=== PATIENT | male | born 1985 | race African-American/Black ===

== ENCOUNTER 2017-03-17 22:56 | Emergency (ER) | payer MEDICAID, OTHER ==
[~2017-03-17] VITALS: Ht 193 cm; Wt 163.3 kg
[2017-03-17] MEDS ORDERED: diphenhdrAMINE HCL 25 MG CAP PO ONE ×2 (22:57→23:15)
[2017-03-18 00:07] VITALS: BP 150/79
== END 2017-03-18 00:37 | disposition home or self-care (01) ==
LOC: ER 22:56
DX: T78.40XA Allergy, unspecified, initial encounter (principal); Z88.6 Allergy status to analgesic agent